=== PATIENT | female | born 1995 | race Caucasian/White ===

== ENCOUNTER → 2020-12-17 | Outpatient (CLI) | payer BC ==
--- NOTE | 2020-12-17 20:49 | KCIC ---
INDICATION: Reason: LEFT FLANK PAIN / Spl. Instructions: HX OF URETER OBSTRUCTION, HORSESHOE KIDNEY, URETER SURGERY ON BOTH / History: COMPARISON: None. IMPRESSION: Abdomen: 2 views obtained. Moderate amount of stool throughout the colon. Air scattered throughout th e large and small bowel in a nonspecific but not grossly obstructive pattern. There are some calcific ations within the left hemipelvis which could be secondary to phleboliths although a ureter stone cou ld have a similar appearance. The renal shadows are largely obscured by bowel gas. Electronically signed by: Willard Estevez MD (12/17/2020 8:47 PM) [id number]
== END ==
LOC: KCIC 15:21
PROVIDERS: ATTEND Urology
DX: N20.0 Calculus of kidney (principal)
CPT/HCPCS: 74018